=== PATIENT | male | born 1965 ===

== ENCOUNTER 2018-02-05 07:58 | Inpatient (IN) | payer MEDICAID, OTHER ==
--- NOTE | 2018-02-05 08:05 | ED PDOC ---
Arrival/HPI - General Time Seen by Provider: 02/05/18 08:00 - Critical Care Critical Care Minutes: 30 minutes Narrative Critical Care (Text): 02/05/18 09:32 heparin bolus and drip for nstemi - History of Present Illness Narrative History of Present Illness (Text): 02/05/18 08:04 Patient is a 52 y/o M with hx of [place], with prior cath in 02/2015 showing "2 vessel CAD with stents in the proximal LAD and proximal RCA, with 60% stenosis in distal RCA, on aspirin 81mg daily, presenting with 2 day history of chest pain. He reports that the pain is "like an elephant on my chest." Reports some cough. [employer] Associate: Dr. Dukes PMD: denies Past Medical History - Tetanus Immunization Tetanus Immunization: Unknown - Past Medical History Past Medical History: No Previous - Cardiac Hx Pacemaker: No - Pulmonary Hx Respiratory Disorders: No - Neurological Hx Paralysis: No - HEENT Hx HEENT Disorder: No - Renal Hx Renal Disorder: No - Endocrine/Metabolic Hx Endocrine Disorders: No - Hematological/Oncological Hx Blood Transfusions: No - Integumentary Hx Dermatological Disorder: No - Musculoskeletal/Rheumatological Hx Musculoskeletal Disorders: No - Gastrointestinal Hx Gastrointestinal Disorders: No - Genitourinary/Gynecological Hx Genitourinary Disorders: No - Psychiatric Hx Emotional Abuse: No Hx Physical Abuse: No Hx Substance Use: No - Past Surgical History Past Surgical History: No Previous - Anesthesia Hx Anesthesia Reactions: No Hx Malignant Hyperthermia: No - Suicidal Assessment Feels Threatened In Home Enviroment: No Family/Social History Family/Social History: No Known Family HX Smoking Status: Never Smoked Hx Alcohol Use: Yes (OCCASIONAL) Hx Substance Use: No Hx Substance Use Treatment: No Allergies/Home Meds Allergies/Adverse Reactions: Allergies No Known Allergies Allergy (Verified 12/16/14 06:38) Review of Systems - Review of Systems Constitutional: absent: Fatigue, Weight Change ENT: absent: Hearing Changes Respiratory: Cough. absent: SOB, Sputum, Wheezing Cardiovascular: Chest Pain. absent: Palpitations, Edema, Calf Pain, [place], Orthopnea, Syncope Gastrointestinal: absent: Constipation, Nausea, Vomiting, Hematemesis Genitourinary Male: absent: Dysuria Neurological: absent: Headache, Dizziness, Focal Weakness, Gait Changes, Speech Changes, Facial Droop, Disequilibrium Physical Exam Vital Signs Temp Pulse Resp BP Pulse Ox 02/05/18 11:47 98 F 93 H 20 122/88 97 02/05/18 09:25 97 H 18 117/86 99 02/05/18 07:58 98.6 F 104 H 18 123/88 99 Temperature: Afebrile Blood Pressure: Normal Pulse: Regular Respiratory Rate: Normal Appearance: Positive for: Well-Appearing, Non-Toxic, Comfortable Pain Distress: None Mental Status: Positive for: Alert and Oriented X 3 - Systems Exam Head: Present: Atraumatic, Normocephalic Pupils: Present: PERRL Extroacular Muscles: Present: EOMI Conjunctiva: Present: Normal Mouth: Present: Moist Mucous Membranes Neck: Present: Normal Range of Motion Respiratory/Chest: Present: Clear to Auscultation, Good Air Exchange. No: Respiratory Distress, Accessory Muscle Use Cardiovascular: Present: Regular Rate and Rhythm, Normal S1, S2. No: Murmurs Abdomen: No: Tenderness, Distention Upper Extremity: Present: Normal Inspection, Other (equal upper extremity pulses b/l) Lower Extremity: Present: Normal Inspection Neurological: Present: GCS=15, CN II-XII Intact, Speech Normal Skin: Present: Warm, Dry. No: Rashes Psychiatric: Present: Alert, Oriented x 3 Medical Decision Making ED Course and Treatment: 02/05/18 08:11 Impression: 52 year old male presents to the emergency department complaining of chest pain and coughing for 2 days. Plan: -- Labs -- Magnesium -- Chest X-ray -- Aspirin -- Urinalysis -- Reassess and disposition Progress Notes: EKG shows T wave inversions in V2-V5 02/05/18 09:23 Chest X-ray reviewed, shows: LUNGS: No active pulmonary disease. PLEURA: No significant pleural effusion identified, no pneumothorax apparent. CARDIOVASCULAR: Normal. OSSEOUS STRUCTURES: No significant abnormalities. VISUALIZED UPPER ABDOMEN: Normal. OTHER FINDINGS: None. IMPRESSION: No active disease. 02/05/18 09:32 Patient now pain free after aspirin 02/05/18 09:35 Trop elevated. Heparin bolus ordered. Repeat EKG, shows no change. 02/05/18 10:[address] Dukes who will perform cath today. Requesting plavix and NPO 02/05/18 13:39 - Lab Interpretations Lab Results: 02/05/18 08:09 02/05/18 08:09 Lab Results 02/05/18 08:09: Sodium 141, Potassium 4.4, Chloride 109 H, Carbon Dioxide 20 L, Anion Gap 17, BUN 14, Creatinine 0.9, Est GFR ( Amer) > 60, Est GFR (Non- Af Amer) > 60, Random Glucose 113 H, Calcium 8.8, Magnesium 2.0, Total Bilirubin 1.6 H, AST 61 H, ALT 57 H, Alkaline Phosphatase 69, Lactate Dehydrogenase 544, Total Creatine Kinase 309 H, CK-MB (CK-2) 31.3 H, CK-MB (CK-2 ) % 10.1 H, Troponin I 4.70 H* D, NT-Pro-B Natriuret Pep 2730 H, Total Protein 7.0, Albumin 3.9, Globulin 3.1, Albumin/Globulin Ratio 1.3 02/05/18 08:09: PT 13.4 H, INR 1.16 H, APTT 24.8 L, D-Dimer, Quantitative 1626 H 02/05/18 08:09: WBC 7.4, RBC 4.86, Hgb 14.1, Hct 41.3 L, MCV 85.0, MCH 29.0, MCHC 34.1, RDW 15.4 H, Plt Count 211, MPV 9.9, Gran % 61.1, Lymph % (Auto) 29.5 , [place] % (Auto) 8.8 H, Eos % (Auto) 0.5 L, Baso % (Auto) 0.1, Gran # 4.53, Lymph # (Auto) 2.2, [place] # (Auto) 0.7 H, Eos # (Auto) 0.0, Baso # (Auto) 0.01 02/05/18 08:00: Triglycerides 107, Cholesterol 178, LDL Cholesterol Direct 115, HDL Cholesterol 42 02/05/18 08:00: Free T4 1.20, TSH 3rd Generation 3.18, Alcohol, Quantitative < 10 - RAD Interpretation Radiology Orders: 02/05/18 08:09 CHEST PORTABLE [RAD] Stat - Medication Orders Current Medication Orders: Clopidogrel Bisulfate (Plavix) 75 mg PO DAILY [facility] Pantoprazole Sodium (Protonix Ec Tab) 40 mg PO 0600 HARDIK Discontinued Medications Aspirin (Aspirin Chewable) 81 mg PO STAT STA Stop: 02/05/18 08:10 Last Admin: 02/05/18 08:40 Dose: 81 mg Aspirin (Aspirin Chewable) 81 mg PO STAT STA Stop: 02/05/18 13:36 Clopidogrel Bisulfate (Plavix) 600 mg PO STAT STA Stop: 02/05/18 09:59 Last Admin: 02/05/18 10:09 Dose: 600 mg Heparin Sodium (Porcine) (Heparin) 4,000 units IV ONCE ONE PRN Reason: Protocol Stop: 02/05/18 09:27 Last Admin: 02/05/18 09:48 Dose: 4,000 units eMAR Start Stop Document 02/05/18 09:48 SRE (Rec: 02/05/18 09:49 SRE [id number]) Intravenous Solution Start Date 02/05/18 Start Time 09:49 Heparin Sodium/Sodium Chloride (Heparin 62643 Units/250ml 1/2 Normal Saline) 25 ,000 units in 250 mls @ 10.07 mls/hr IV .Q24H HARDIK; 12 UNITS/KG/HR PRN Reason: Protocol Last Admin: 02/05/18 10:05 Dose: - Scribe Statement The provider has reviewed the documentation as recorded by the Scribe Tabatha Bran All medical record entries made by the Herminia were at my direction and personally dictated by me. I have reviewed the chart and agree that the record accurately reflects my personal performance of the history, physical exam, medical decision making, and the department course for this patient. I have also personally directed, reviewed, and agree with the discharge instructions and disposition. Disposition/Present on Arrival - Present on Arrival Any Indicators Present on Arrival: No History of DVT/PE: No History of Uncontrolled Diabetes: No Urinary Catheter: No History Surgical Site Infection Following: None - Disposition Have Diagnosis and Disposition been Completed?: Yes Diagnosis: NSTEMI (non-ST elevated myocardial infarction), Chest pain Disposition: HOSPITALIZED Disposition Time: 07:58 Patient Plan: Admission Patient Problems: Current Active Problems Problem Status Onset Chest pain Acute NSTEMI (non-ST elevated myocardial infarction) Acute Condition: FAIR
[2018-02-05 08:30] LABS: BASO # 0.01 K/mm3 (0.0-2.0); BASO % 0.1 % (0.0-3.0); EOS % 0.5 % (1.5-5.0); GRAN # 4.53 (1.4-6.5); GRAN % 61.1 % (50.0-68.0); HEMOGLOBIN 14.1 g/dL (14.0-18.0); LYMPH # 2.2 (1.2-3.4); LYMPH % 29.5 % (22.0-35.0); MEAN CORPUSCULAR HGB CONC 34.1 g/dl (31.0-37.0); MEAN PLATELET VOLUME 9.9 fl (7.0-11.0); MONO # 0.7 (0.1-0.6); MONO % 8.8 % (1.0-6.0); RBC 4.86 10^6/uL (3.5-6.1); RED CELL DISTRIBUTION WIDTH 15.4 % (11.5-14.5); WHITE BLOOD COUNT 7.4 10^3/ul (4.5-11.0)
[2018-02-05 08:39] LABS: ALB/GLOB RATIO 1.3 (1.1-1.8); ALBUMIN 3.9 g/dL (3.0-4.8); ALT/SGPT 57 U/L (7-56); AST/SGOT 61 U/L (17-59); BLOOD UREA NITROGEN 14 mg/dL (7-21); CALCIUM 8.8 mg/dL (8.4-10.5); GFR AFRICAN-AMERICAN > 60; GFR NON-AFRICAN AMERICAN > 60
[2018-02-05 08:51] LABS: INR 1.16 (0.93-1.08); PARTIAL THROMBOPLASTIN TIME 24.8 Seconds (25.1-36.5); PROTHROMBIN TIME 13.4 SECONDS (9.4-12.5)
[2018-02-05 08:53] LABS: B-TYPE NATRIURETIC PEPTIDE 2730 pg/mL (0-450)
[2018-02-05 08:58] LABS: CK MB% 10.1 % (2.5-3.0); CK-MB 31.3 ng/mL (0.0-3.6)
--- NOTE | 2018-02-05 09:21 | RAD ---
HISTORY: cough, chest pain COMPARISON: 12/17/2014 FINDINGS: LUNGS: No active pulmonary disease. PLEURA: No significant pleural effusion identified, no pneumothorax apparent. CARDIOVASCULAR: Normal. OSSEOUS STRUCTURES: No significant abnormalities. VISUALIZED UPPER ABDOMEN: Normal. OTHER FINDINGS: None. IMPRESSION: No active disease.
[2018-02-05] MEDS: Heparin25000 units/250ml 1/2NS 25,000 UNITS/250 ML BAG IV SCH ×2 (09:46→10:05)
--- NOTE | 2018-02-05 11:31 | CP.PCM.HP ---
<Lila Acevedo - Last Filed: 02/05/18 12:12> History of Present Illness - History of Present Illness History of Present Illness: PGY-[address] Lopez Mr Frey, 52 slovak speaking male with PMHx 3-4 beer a day, Hx CAD s/p 2 stents ( RCA dominant, LAD stent/RCA stent, EF 35-40% 2014) came in for chest pain. Yesterday 3pm, He was working at [employer], which involves a lot of throwing boxes overhead. He felt chest pressure with mild pain at L mid chest , without radiation pain, denies dizziness, diaphoresis, n/v. He took asa 81, which helped. However the chest pain comes and goes. At night he didn't sleep well because of the chest pain. He decided to come to this hospital because chest pain didn't go away. ROS: (+) cough with white sputum, x 3 weeks, subjective chills (+) chest pain. Denies SOB, N/V/D/C, dysuria PMD: No Outpt card: Dr Dukes PMHx: CAD s/p stents x 2 6.2015: L heart cath, EF 35-40%. LAD stent proximal, RCA stent proximal 3-4 beer a day PSH: Denies FH: Mom - bone cancer, dad- of [place] at 78 yo SH: Denies smoking, (+) 3-4 beer/day. Denies drug. live alone. independent ambulate All: NKDA Med: asa 81 Present on Admission - Present on Admission Any Indicators Present on Admission: No Past Patient History - Infectious Disease Hx of Infectious Diseases: None - Tetanus Immunizations Tetanus Immunization: Unknown - Past Social History Smoking Status: Never Smoked - CARDIAC Hx Pacemaker: No - PULMONARY Hx Respiratory Disorders: No - NEUROLOGICAL Hx Paralysis: No - HEENT Hx HEENT Problems: No - RENAL Hx Chronic Kidney Disease: No - ENDOCRINE/METABOLIC Hx Endocrine Disorders: No - HEMATOLOGICAL/ONCOLOGICAL Hx Blood Transfusions: No - INTEGUMENTARY Hx Dermatological Problems: No - MUSCULOSKELETAL/RHEUMATOLOGICAL Hx Musculoskeletal Disorders: No - GASTROINTESTINAL Hx Gastrointestinal Disorders: No - GENITOURINARY/GYNECOLOGICAL Hx Genitourinary Disorders: No - PSYCHIATRIC Hx Emotional Abuse: No Hx Physical Abuse: No Hx Substance Use: No - SURGICAL HISTORY Hx Surgeries: Yes - ANESTHESIA Hx Anesthesia Reactions: No Hx Malignant Hyperthermia: No Meds Allergies/Adverse Reactions: Allergies Allergy/AdvReac Type Severity Reaction Status Date / Time No Known Allergies Allergy Verified 12/16/14 06:38 Results - Vital Signs Recent Vital Signs: Last Vital Signs Temp 98.6 F 02/05/18 07:58 Pulse 97 H 02/05/18 09:25 Resp 18 02/05/18 09:25 BP 117/86 02/05/18 09:25 Pulse Ox 99 02/05/18 09:25 - Labs Result Diagrams: 02/05/18 08:09 02/05/18 08:09 Assessment & Plan - Assessment and Plan (Free Text) Plan: Mr Frey, 52 slovak speaking male with PMHx, 3-4 beer a day, Hx CAD s/p 2 stents (RCA dominant, LAD stent/RCA stent, EF 35-40% 2014) came in for chest pain. Yesterday 3pm, He was working at [employer], which involves a lot of throwing boxes overhead. He felt chest pressure with mild pain at L mid chest , without radiation pain, denies dizziness, diaphoresis, n/v. He was found to have NSTEMI. His EKG showed TWI on lateral leads, troponin 4.70. BNP 2730. CXR no active disease. NSTEMI, lateral - EKG: TWI lateral leads. - Pending cardiac cath at noon - A1C, TSH, free t4, lipid panel - Loading dose plavix before cath. - starting plavix per cardio Elevated BNP, likely ischemic cardiomyopathy, systolic CHF? 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 AST 61. ALT 57. INR 1.16. No abdominal pain - MELD-Na 10 points (<2% of 3 month mortality) - Maddrey's discriminant function 8.0 - Pending hep panel - continue trend LFT Hx daily 3-4 beer - pending BETHANY - CIWA q4 - hold ativan pending BETHANY Prophylasix - protonix - Got IV heparin before cath. May start tomorrow NPO for now s/r/d/w Dr. Lopez <Franki Lopez - Last Filed: 02/06/18 07:37> Results - Vital Signs Recent Vital Signs: Last Vital Signs Temp 98 F 02/05/18 21:35 Pulse 96 H 02/06/18 02:00 Resp 62 H 02/05/18 20:40 BP 112/82 02/05/18 20:40 Pulse Ox 99 02/05/18 20:40 - Labs Result Diagrams: 02/06/18 06:00 02/06/18 06:00 Labs: Laboratory Results - last 24 hr 02/05/18 02/06/18 02/06/18 11:05 03:00 03:00 WBC RBC Hgb Hct MCV MCH MCHC RDW Plt Count MPV Gran % Lymph % (Auto) [place] % (Auto) Eos % (Auto) Baso % (Auto) Gran # Lymph # (Auto) [place] # (Auto) Eos # (Auto) Baso # (Auto) Sodium Potassium Chloride Carbon Dioxide Anion Gap BUN Creatinine Est GFR ( Amer) Est GFR (Non-Af Amer) Random Glucose Calcium Total Bilirubin AST ALT Alkaline Phosphatase Lactate Dehydrogenase Total Creatine Kinase Troponin I Total Protein Albumin Globulin Albumin/Globulin Ratio Urine Color Yellow Urine Appearance Clear Urine pH 6.0 Ur Specific [place] 1.015 Urine Protein Negative Urine Glucose (UA) Negative Urine Ketones Negative Urine Blood Negative Urine Nitrate Negative Urine Bilirubin Negative Urine Urobilinogen 0.2 Ur Leukocyte Esterase Negative Urine Opiates Screen Negative Urine Methadone Screen Negative Ur Barbiturates Screen Negative Ur Phencyclidine Scrn Negative Ur Amphetamines Screen Negative U Benzodiazepines Scrn Positive U Oth Cocaine Metabols Negative U Cannabinoids Screen Negative Blood Type A POSITIVE Antibody Screen Negative BBK History Checked Patient has bt 02/06/18 02/06/18 06:00 06:00 WBC 7.6 RBC 4.74 Hgb 13.5 L Hct 40.9 L MCV 86.3 MCH 28.5 MCHC 33.0 RDW 15.4 H Plt Count 203 MPV 10.1 Gran % 64.8 Lymph % (Auto) 23.3 [place] % (Auto) 11.5 H Eos % (Auto) 0.3 L Baso % (Auto) 0.1 Gran # 4.89 Lymph # (Auto) 1.8 [place] # (Auto) 0.9 H Eos # (Auto) 0.0 Baso # (Auto) 0.01 Sodium 141 Potassium 4.7 Chloride 105 Carbon Dioxide 25 Anion Gap 16 BUN 14 Creatinine 1.0 Est GFR ( Amer) > 60 Est GFR (Non-Af Amer) > 60 Random Glucose 101 Calcium 8.6 Total Bilirubin 1.8 H AST 60 H ALT 53 Alkaline Phosphatase 67 Lactate Dehydrogenase 596 Total Creatine Kinase 234 H Troponin I 3.83 H* Total Protein 6.8 Albumin 3.6 Globulin 3.2 Albumin/Globulin Ratio 1.1 Urine Color Urine Appearance Urine pH Ur Specific [place] Urine Protein Urine Glucose (UA) Urine Ketones Urine Blood Urine Nitrate Urine Bilirubin Urine Urobilinogen Ur Leukocyte Esterase Urine Opiates Screen Urine Methadone Screen Ur Barbiturates Screen Ur Phencyclidine Scrn Ur Amphetamines Screen U Benzodiazepines Scrn U Oth Cocaine Metabols U Cannabinoids Screen Blood Type Antibody Screen BBK History Checked Attending/Attestation - Attestation I have personally seen and examined this patient.: Yes I have fully participated in the care of the patient.: Yes I have reviewed all pertinent clinical information: Yes Notes (Text): 02/06/18 07:35 Attending note; Patient seen and examined with resident in ER. Patient is a 52 year old Cymra[place] speaking male with PMH of alcohol use, Hx CAD s /p 2 stents (RCA dominant, LAD stent/RCA stent, EF 35-40% 2014) came in for chest pain. Found to have non-ST elevation [place]. Patient was given aspirin, Plavix and IV heparin in the ER. Patient will be transferred to cardiac cath today. Case discussed with cardiology in detail by ER attending. Will follow up closely after cardiac cath. History of alcohol use; complete alcohol cessation is strongly advised. Started on CIWA protocol. Upon discharge patient will be referred to [facility] clinic. 02/06/18 07:37
[2018-02-05 11:44] LABS: HDL CHOLESTEROL 42 mg/dL (29-60)
[2018-02-05 11:55] LABS: LDL CHOLESTEROL 115 mg/dL (0-129)
[2018-02-05] MEDS ORDERED: Lidocaine 2% Inj (20ml) ONE (12:07)
[2018-02-05] MEDS ORDERED: Phenylephrine 10 mg/ml Inj ONE (12:07)
[2018-02-05] MEDS ORDERED: Nitroglycerin 50mg in D5W 50 MG/250 ML BOTTLE IV ONE (12:08)
[2018-02-05] MEDS ORDERED: Iodixanol 320 MG/ML 200 ML BOTTLE IV ONE (12:08)
[2018-02-05] MEDS ORDERED: Iohexol 350mgl/ml 50 ML ONE (12:08)
[2018-02-05] MEDS ORDERED: Iodixanol 320 MG/ML 100 ML BOTTLE IV ONE (12:08)
[2018-02-05] MEDS ORDERED: Midazolam 2 MG/2 ML VIAL ONE ×2 (12:10→12:24)
[2018-02-05] MEDS ORDERED: Eptifibatide 20 mg/10mL Inj IVP ONE (12:31)
[2018-02-05] MEDS ORDERED: Eptifibatide 0.75 mg/ml 75 MG/100 ML BOTTLE IV ONE (12:32)
--- NOTE | 2018-02-05 14:21 | CP.PCM.CON ---
<Jose Malhotra - Last Filed: 02/05/18 15:13> History of Present Illness - History of Present Illness History of Present Illness: ICU Consult Note CC: Post cardiac catherization Pt is a 52 yo M with PMH of CAD s/p 2 stents (RCA dominant, LAD stent/RCA stent , EF 35-40% 2014) presented to [facility] due to intermittent chest pain that started yesterday while at work, where he does a lot lifting. Patient states that the chest pain was localized to the left side of his chest, but did not radiate. Patient admitted to shortness of breath. Patient denied any associated nausea, vomiting, or palpitations. Patient states that the pain was similar to NSTEMI he had in 2015, which required stents. As the pain persisted today, patient proceeded to the ED to seek evaluation. In the ED, patient had an elevated troponin of 4.70 and t-wave inversions in the lateral leads. Patient was evaluated by cardiology, who took the patient to cardiac catherization lab. DINA were placed in the LAD and circumflex arteries. ICU consultation was requested for post-cardiac catherization monitoring on integrilin drip. PMH: CAD s/p 2 stents (RCA dominant, LAD stent/RCA stent, EF 35-40% 2014) Surg: Cardiac catherization (2014) All: NKDA SH: Admits to 3-4 beers daily; Denies tobacco and illicit drug use FHx: CAD Review of Systems - Review of Systems Review of Systems: 12 point ROS reviewed and is negative other than what is stated in HPI. Past Patient History - Infectious Disease Hx of Infectious Diseases: None - Tetanus Immunizations Tetanus Immunization: Unknown - Past Social History Smoking Status: Never Smoked - CARDIAC Hx Pacemaker: No - PULMONARY Hx Respiratory Disorders: No - NEUROLOGICAL Hx Paralysis: No - HEENT Hx HEENT Problems: No - RENAL Hx Chronic Kidney Disease: No - ENDOCRINE/METABOLIC Hx Endocrine Disorders: No - HEMATOLOGICAL/ONCOLOGICAL Hx Blood Transfusions: No - INTEGUMENTARY Hx Dermatological Problems: No - MUSCULOSKELETAL/RHEUMATOLOGICAL Hx Musculoskeletal Disorders: No - GASTROINTESTINAL Hx Gastrointestinal Disorders: No - GENITOURINARY/GYNECOLOGICAL Hx Genitourinary Disorders: No - PSYCHIATRIC Hx Emotional Abuse: No Hx Physical Abuse: No Hx Substance Use: No - SURGICAL HISTORY Hx Surgeries: Yes - ANESTHESIA Hx Anesthesia Reactions: No Hx Malignant Hyperthermia: No Meds Allergies/Adverse Reactions: Allergies Allergy/AdvReac Type Severity Reaction Status Date / Time No Known Allergies Allergy Verified 12/16/14 06:38 - Medications Medications: Current Medications Clopidogrel Bisulfate (Plavix) 75 mg PO DAILY [facility] Pantoprazole Sodium (Protonix Ec Tab) 40 mg PO 0600 [facility] Physical Exam - Constitutional Appears: No Acute Distress - Head Exam Head Exam: NORMAL INSPECTION - Eye Exam Eye Exam: EOMI, Normal appearance, PERRL - ENT Exam ENT Exam: Mucous Membranes Moist - Neck Exam Neck exam: Positive for: Normal Inspection - Respiratory Exam Respiratory Exam: Clear to Auscultation Bilateral. absent: Rales, Rhonchi, Wheezes - Cardiovascular Exam Cardiovascular Exam: RRR, +S1, +S2. absent: Diastolic murmur, Gallop, Rubs, Systolic Murmur - GI/Abdominal Exam GI & Abdominal Exam: Soft. absent: Distended, Guarding, Rigid, Tenderness - Extremities Exam Additional comments: Cardiac catherization site right femoral: nontender to palpation, no signs of hematoma or discharge, bandage is clean, dry, and intact. - Back Exam Back exam: NORMAL INSPECTION - Neurological Exam Neurological exam: Alert, CN II-XII Intact, Oriented x3 - Psychiatric Exam Psychiatric exam: Normal Affect, Normal Mood - Skin Skin Exam: Dry, Intact, Normal Color, Warm Results - Vital Signs Recent Vital Signs: Last Vital Signs Temp 97.4 F L 02/05/18 13:44 Pulse 95 H 02/05/18 13:44 Resp 20 02/05/18 13:44 BP 112/78 02/05/18 13:44 Pulse Ox 97 02/05/18 13:44 - Labs Result Diagrams: 02/05/18 08:09 02/05/18 08:09 Labs: Laboratory Results - last 24 hr 02/05/18 11:05 Blood Type A POSITIVE Antibody Screen Negative BBK History Checked Patient has bt Assessment & Plan - Assessment and Plan (Free Text) Assessment: 52 yo M with PMH of CAD presented to [facility] due to chest pain. Patient was found to have T-wave inversions in lateral leads and an elevated troponin. Patient was taken to cardiac catherization lab for NSTEMI, where DINA were placed in LAD and circumflex arteries. Patient is admitted to ICU for post-cardiac catherization monitoring on integrilin drip. Plan: Neuro: - AAOx3 - Maintain normothermia CV: - Cont integrilin drip - Dual anti-platelet therapy - Post cardiac cath protocol - Consider statin after LFT's normalize - Hold BB for now per cardio - TSH and Lipid panel WNL - A1C ordered - Maintain MAP > 65 - Cardiology consulted Pulm: - CXR negative - Maintain O2 > 90% - O2 via NC GI: - Mildly elevated LFT's, acute hep panel ordered - Protonix for GI PPx - Heart healthy diet Renal: - Monitor electrolytes and replete as needed - Maintain euvolemia Heme: - Monitor H/H - Heparin given before medical lab tech instructor Endo: - Maintain euglycemia Pt seen and discussed in detail with Dr. Moise. Vinod Malhotra, PGY1 <Harvinder Moise - Last Filed: 02/06/18 11:20> Meds - Medications Medications: Current Medications Aspirin (Ecotrin) 81 mg PO DAILY [facility] Last Admin: 02/06/18 10:11 Dose: 81 mg Clopidogrel Bisulfate (Plavix) 75 mg PO DAILY [facility] Last Admin: 02/06/18 10:11 Dose: 75 mg Lisinopril (Zestril) 2.5 mg PO DAILY [facility] Last Admin: 02/06/18 10:11 Dose: 2.5 mg Lorazepam (Ativan) 1 mg IVP Q4H PRN; Protocol PRN Reason: Symptoms of alcohol withdrawl Pantoprazole Sodium (Protonix Ec Tab) 40 mg PO 0600 [facility] Last Admin: 02/06/18 06:43 Dose: 40 mg Results - Vital Signs Recent Vital Signs: Last Vital Signs Temp 98 F 02/05/18 21:35 Pulse 93 H 02/06/18 10:49 Resp 45 H 02/06/18 10:48 BP 127/86 02/06/18 10:40 Pulse Ox 90 L 02/06/18 10:40 - Labs Result Diagrams: 02/06/18 06:00 02/06/18 06:00 Labs: Laboratory Results - last 24 hr 02/05/18 02/06/18 02/06/18 11:05 03:00 03:00 WBC RBC Hgb Hct MCV MCH MCHC RDW Plt Count MPV Gran % Lymph % (Auto) Porter % (Auto) Eos % (Auto) Baso % (Auto) Gran # Lymph # (Auto) Porter # (Auto) Eos # (Auto) Baso # (Auto) Sodium Potassium Chloride Carbon Dioxide Anion Gap BUN Creatinine Est GFR ( Amer) Est GFR (Non-Af Amer) Random Glucose Calcium Total Bilirubin AST ALT Alkaline Phosphatase Lactate Dehydrogenase Total Creatine Kinase CK-MB (CK-2) CK-MB (CK-2) % Troponin I Total Protein Albumin Globulin Albumin/Globulin Ratio Urine Color Yellow Urine Appearance Clear Urine pH 6.0 Ur Specific [place] 1.015 Urine Protein Negative Urine Glucose (UA) Negative Urine Ketones Negative Urine Blood Negative Urine Nitrate Negative Urine Bilirubin Negative Urine Urobilinogen 0.2 Ur Leukocyte Esterase Negative Urine Opiates Screen Negative Urine Methadone Screen Negative Ur Barbiturates Screen Negative Ur Phencyclidine Scrn Negative Ur Amphetamines Screen Negative U Benzodiazepines Scrn Positive U Oth Cocaine Metabols Negative U Cannabinoids Screen Negative Blood Type A POSITIVE Antibody Screen Negative BBK History Checked Patient has bt 02/06/18 02/06/18 06:00 06:00 WBC 7.6 RBC 4.74 Hgb 13.5 L Hct 40.9 L MCV 86.3 MCH 28.5 MCHC 33.0 RDW 15.4 H Plt Count 203 MPV 10.1 Gran % 64.8 Lymph % (Auto) 23.3 Porter % (Auto) 11.5 H Eos % (Auto) 0.3 L Baso % (Auto) 0.1 Gran # 4.89 Lymph # (Auto) 1.8 Porter # (Auto) 0.9 H Eos # (Auto) 0.0 Baso # (Auto) 0.01 Sodium 141 Potassium 4.7 Chloride 105 Carbon Dioxide 25 Anion Gap 16 BUN 14 Creatinine 1.0 Est GFR ( Amer) > 60 Est GFR (Non-Af Amer) > 60 Random Glucose 101 Calcium 8.6 Total Bilirubin 1.8 H AST 60 H ALT 53 Alkaline Phosphatase 67 Lactate Dehydrogenase 596 Total Creatine Kinase 234 H CK-MB (CK-2) 17.4 H CK-MB (CK-2) % 7.4 H Troponin I 3.83 H* Total Protein 6.8 Albumin 3.6 Globulin 3.2 Albumin/Globulin Ratio 1.1 Urine Color Urine Appearance Urine pH Ur Specific [place] Urine Protein Urine Glucose (UA) Urine Ketones Urine Blood Urine Nitrate Urine Bilirubin Urine Urobilinogen Ur Leukocyte Esterase Urine Opiates Screen Urine Methadone Screen Ur Barbiturates Screen Ur Phencyclidine Scrn Ur Amphetamines Screen U Benzodiazepines Scrn U Oth Cocaine Metabols U Cannabinoids Screen Blood Type Antibody Screen BBK History Checked Attending/Attestation - Attestation I have personally seen and examined this patient.: Yes I have fully participated in the care of the patient.: Yes I have reviewed all pertinent clinical information: Yes Notes (Text): 02/06/18 11:19 52 male with ACS, now s/p 2 stents on integrillin drip. continue DAP, bb, statins. TAC at the discretion of cardio service. ccm time 40 min
--- NOTE | 2018-02-05 14:24 | CARD ---
APPROVED REPORT EKG Measurement Heart [id number] MA [id number] <Conclusion> Normal sinus rhythm Possible Left atrial enlargement Left axis deviation Anterior infarct, age undetermined T wave abnormality, consider markus- lateral ischemia Abnormal ECG
--- NOTE | 2018-02-05 16:08 | CARDCATH ---
PROCEDURE DATE: 02/05/2018 EMERGENCY CARDIAC CATH AND PTCA HISTORY: The patient is a 52-year-old male with a previous anterior wall myocardial infarction in the past who presents with substernal chest pain and shortness of breath and found to have elevated troponins in the emergency room. The patient suffers from diabetes mellitus, hypertension, hypercholesterolemia and obesity and has not been followed up with medical care nor has been undergoing a cardiac risk reduction program. Because of his acute coronary syndrome, the patient was brought up to the catheter builder on an emergency basis. PROCEDURE: Left heart catheterization with coronary arteriography and left ventriculogram followed by PTCA and stent of an LAD, and PTCA and stent of the circumflex artery. The right femoral artery was cannulated with a 6-Micronesian sheath. There were no complications. I performed moderate sedation which included the presence of an independent trained observer that assisted in monitoring the patient's level of consciousness and physiologic status. After administration of Versed and fentanyl, my intra-service time was 30 minutes. The patient was started on intravenous Integrilin with two boluses and a drip. The ACT from the emergency room was 145, an additional 4000 units of heparin was given. The findings on catheterization revealed a right dominant circulation. The RCA revealed diffuse atherosclerosis throughout its course with a 90% stenosis at the takeoff of the PDA. The left main artery was unremarkable. The LAD was occluded in its proximal portion prior to the previously placed stent with evidence of thrombus. The circumflex artery revealed a 70% stenosis in the midportion of a large AV groove branch vessel. The obtuse marginal branch revealed an 80% ostial stenosis with a 70% proximal stenosis. Left ventricular function was measured in the BURCH projection. The anterior wall was noted to be hypokinetic. Estimated ejection fraction is 25%-30%. exchanged for a guiding catheter which was placed in the ostium of the left main artery. An 0.014 ATW wire was used to cross the total occlusion. A 2 followed by a 2.5 balloon was utilized to pre-dilate the lesion. A 3.5 x 12 mm drug-eluting stent was placed and deployed in the proximal LAD. After balloon deflation and removal, repeat coronary arteriography revealed an excellent result with no residual stenosis and KOBE III flow. The wire was then brought back and placed into the circumflex artery. A 3.5 x 15 mm drug-eluting stent was placed and deployed. Repeat coronary arteriography revealed an excellent result with no residual stenosis and KOBE III flow. Angio-Seal was used to close the femoral artery site. The patient tolerated the procedure well. In summary, the procedure was an emergency PTCA and stent of an occluded LAD and followed by PTCA and stent of a circumflex artery with drug-eluting stents. Cardiac catheterization reveals triple vessel CAD with a compromised left ventricle. Given these findings, the patient will need to remain on aspirin indefinitely and Plavix for at least a year. We will discuss with the patient electively as an outpatient about his need for cardiac risk reduction program and about a possible planned PTCA of the RCA. Jose J Dukes MD
[2018-02-05 17:29] VITALS: BMI 29.5
[2018-02-05 20:56] VITALS: TEMP 98
[2018-02-05 21:10] LABS: HEPATITIS B SURFACE AG Negative (NEGATIVE)
[2018-02-05] MEDS ORDERED: Eptifibatide 0.75 mg/ml 75 MG/100 ML BOTTLE IV SCH (21:15)
[2018-02-05 21:16] LABS: HEPATITIS A IGM NEGATIVE (NEGATIVE); HEPATITIS B CORE AB NEGATIVE (NEGATIVE)
[2018-02-05 21:26] LABS: HEPATITIS C ANTIBODY NEGATIVE (NEGATIVE)
--- NOTE | 2018-02-05 21:36 | CARD ---
APPROVED REPORT EKG Measurement Heart [id number] MO 136P69 [id number] <Conclusion> Normal sinus rhythm Left axis deviation T wave abnormality, consider anterolateral ischemia Prolonged QT Abnormal ECG
--- NOTE | 2018-02-05 23:15 | CARD ---
APPROVED REPORT EKG Measurement Heart [id number] [place] 130P74 [id number] <Conclusion> Sinus tachycardia Possible Left atrial enlargement Left axis deviation Cannot rule out Anteroseptal infarct, age undetermined T wave abnormality, consider lateral ischemia Abnormal ECG
[2018-02-06 03:27] LABS: URINE BILIRUBIN NEGATIVE (NEGATIVE); URINE BLOOD NEGATIVE (NEGATIVE); URINE GLUCOSE (UA) NEGATIVE (NEGATIVE); URINE LEUKOCYTE ESTERASE NEGATIVE Leu/uL (NEGATIVE); URINE PROTEIN NEGATIVE mg/dL (<30 mg/dL); URINE UROBILINOGEN 0.2 E.U./dL (<1 E.U./dL)
[2018-02-06 03:28] LABS: URINE APPEARANCE CLEAR (CLEAR); URINE COLOR YELLOW (YELLOW)
[2018-02-06 04:03] LABS: BARBITURATES, UR NEGATIVE (NEGATIVE); BENZODIAZEPINES, UR POSITIVE (NEGATIVE); OPIATES, UR NEGATIVE (NEGATIVE); PHENCYCLIDINE, UR NEGATIVE (NEGATIVE)
[2018-02-06] MEDS ORDERED: Pantoprazole 40 mg EC Tab PO SCH (06:00)
[2018-02-06 07:08] LABS: BASO # 0.01 K/mm3 (0.0-2.0); BASO % 0.1 % (0.0-3.0); EOS % 0.3 % (1.5-5.0); GRAN # 4.89 (1.4-6.5); GRAN % 64.8 % (50.0-68.0); HEMOGLOBIN 13.5 g/dL (14.0-18.0); LYMPH # 1.8 (1.2-3.4); LYMPH % 23.3 % (22.0-35.0); MEAN CELL VOLUME 86.3 fl (80.0-105.0); MEAN CORPUSCULAR HEMOGLOBIN 28.5 pg (25.0-35.0); MEAN PLATELET VOLUME 10.1 fl (7.0-11.0); MONO # 0.9 (0.1-0.6); MONO % 11.5 % (1.0-6.0); RBC 4.74 10^6/uL (3.5-6.1); RED CELL DISTRIBUTION WIDTH 15.4 % (11.5-14.5); WHITE BLOOD COUNT 7.6 10^3/ul (4.5-11.0)
[2018-02-06 07:23] LABS: ALB/GLOB RATIO 1.1 (1.1-1.8); ALBUMIN 3.6 g/dL (3.0-4.8); ALT/SGPT 53 U/L (7-56); AST/SGOT 60 U/L (17-59); BLOOD UREA NITROGEN 14 mg/dL (7-21); CALCIUM 8.6 mg/dL (8.4-10.5); GFR AFRICAN-AMERICAN > 60; GFR NON-AFRICAN AMERICAN > 60
[2018-02-06 07:28] LABS: TROPONIN I 3.83 ng/mL
[2018-02-06 07:40] LABS: CK MB% 7.4 % (2.5-3.0); CK-MB 17.4 ng/mL (0.0-3.6)
--- NOTE | 2018-02-06 07:59 | CP.PCM.PN ---
Subjective - Date & Time of Evaluation Date of Evaluation: 02/06/18 Time of Evaluation: 07:51 - Subjective Subjective: PGY-[address] Lopez Pt seen and examined in ICU. complained of mild pain at R, reproducible on palpation. Chest pressure on L resolved. No other acute complaints Objective - Vital Signs/Intake and Output Vital Signs (last 24 hours): Temp Pulse Resp BP Pulse Ox 98 F 96 H 62 H 112/82 99 02/05/18 21:35 02/06/18 02:00 02/05/18 20:40 02/05/18 20:40 02/05/18 20:40 - Medications Medications: Current Medications Aspirin (Ecotrin) 81 mg PO DAILY [facility] Clopidogrel Bisulfate (Plavix) 75 mg PO DAILY [facility] Lorazepam (Ativan) 1 mg IVP Q4H PRN; Protocol PRN Reason: Symptoms of alcohol withdrawl Pantoprazole Sodium (Protonix Ec Tab) 40 mg PO 0600 [facility] Last Admin: 02/06/18 06:43 Dose: 40 mg - Labs Labs: 02/06/18 06:00 02/06/18 06:00 PT 13.4 SECONDS (9.4-12.5) H 02/05/18 08:09 INR 1.16 (0.93-1.08) H 02/05/18 08:09 APTT 24.8 Seconds (25.1-36.5) L 02/05/18 08:09 - Constitutional Appears: No Acute Distress - Head Exam Head Exam: ATRAUMATIC, NORMAL INSPECTION, NORMOCEPHALIC - Eye Exam Eye Exam: EOMI, Normal appearance, PERRL. absent: Scleral icterus Pupil Exam: NORMAL ACCOMODATION, PERRL - ENT Exam ENT Exam: Mucous Membranes Moist - Neck Exam Additional comments: supple. No JVD - Respiratory Exam Respiratory Exam: Clear to Ausculation Bilateral, NORMAL BREATHING PATTERN. absent: Rales, Rhonchi, Wheezes, Stridor - Cardiovascular Exam Cardiovascular Exam: REGULAR RHYTHM, +S1, +S2. absent: Murmur - GI/Abdominal Exam GI & Abdominal Exam: Soft, Normal Bowel Sounds. absent: Guarding, Rigid, Tenderness - Extremities Exam Extremities Exam: Normal Capillary Refill. absent: Calf Tenderness - Neurological Exam Neurological Exam: Alert, Awake, Oriented x3 Neuro motor strength exam: Left Upper Extremity: 5, Right Upper Extremity: 5, Left Lower Extremity: 5, Right Lower Extremity: 5 - Psychiatric Exam Psychiatric exam: Normal Mood - Skin Skin Exam: Dry, Warm Assessment and Plan - Assessment and Plan (Free Text) Plan: Mr Frey, 52 korean speaking male with PMHx of ETOH use (3-4 beer a day), Hx CAD s/p 2 stents (RCA dominant, LAD stent/RCA stent, EF 35-40% 2014) came in for chest pain. Yesterday 3pm, He was working at [employer], which involves a lot of throwing boxes overhead. He felt chest pressure with mild pain at L mid chest, without radiation pain, denies dizziness, diaphoresis, n/ v. He was found to have NSTEMI. His EKG showed TWI on lateral leads, troponin 4.70. BNP 2730. CXR no active disease. He was taken to the boat laborer for emergent PTCA, received LED on proximal LAD and L circumflex artery. He was found to have Ischemic cardiomyopathy, EF 25-30% due to triple vessel disease. Integrillin gtt stopped 7am NSTEMI, lateral: ACS Elevated D-dimer likely due to ACS - EKG on admission: TWI lateral leads. 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 AST 61. ALT 57. INR 1.16. No abdominal pain - MELD-Na 10 points (<2% of 3 month mortality) - Madrichie's discriminant function 8.0 - hep panel negative - continue trend LFT Hx daily 3-4 beer - pending BETHANY - CIWA q4: 0-2 - Ativan PRN Prophylasix - protonix - Got IV heparin before cath. May start later HHD for now s/r/d/w Dr. Lopez
--- NOTE | 2018-02-06 10:13 | CP.CCUPN ---
CCU Subjective - Physician Review Subjective (Free Text): ICU Progress Note Pt seen and examined at bedside. No acute overnight events. Patient complaining of reproducible right sided chest pain this AM. Otherwise, patient denies SOB, n /v/d, abdominal pain, fever, chills, DHILLON, or dizziness. CCU Objective - Vital Signs / Intake & Output Intake and Output (Last 8hrs): Intake & Output 02/05/18 02/06/18 02/06/18 22:59 06:59 14:59 Intake Total 807 Output Total 900 Balance -93 Weight 90.718 kg Intake: IV 457 Right 457 Oral 350 Output: Urine 900 Urine, Voided 900 Stool 0 Other: Voiding Method Toilet # Voids Urine, Voided 2 - Physical Exam Head: Positive for: Atraumatic, Normocephalic Pupils: Positive for: PERRL Extroacular Muscles: Positive for: EOMI Conjunctiva: Positive for: Normal Mouth: Positive for: Moist Mucous Membranes Neck: Positive for: Normal Range of Motion Respiratory/Chest: Positive for: Clear to Auscultation, Good Air Exchange. Negative for: Respiratory Distress, Accessory Muscle Use Cardiovascular: Positive for: Regular Rate and Rhythm, Normal S1, S2. Negative for: Murmurs, Rub, Gallop Abdomen: Negative for: Tenderness, Distention, Rebound Upper Extremity: Positive for: Normal Inspection, Other (equal upper extremity pulses b/l) Lower Extremity: Positive for: Normal Inspection, NORMAL PULSES, Other (Cath site, right groin: no signs of hematoma, discharge, bandages clean, dry, and intact) Neurological: Positive for: GCS=15, CN II-XII Intact, Speech Normal Skin: Positive for: Warm, Dry. Negative for: Rashes Psychiatric: Positive for: Alert, Oriented x 3 - Medications Active Medications: Active Medications Generic Name Dose Route Start Last Admin Trade Name Freq PRN Reason Stop Dose Admin Aspirin 81 mg 02/06/18 10:00 Ecotrin PO DAILY HARDIK Clopidogrel Bisulfate 75 mg 02/06/18 10:00 Plavix PO DAILY HARDIK Lisinopril 2.5 mg 02/06/18 10:00 Zestril PO DAILY HARDIK Lorazepam 1 mg 02/05/18 18:47 Ativan IVP Q4H PRN Symptoms of alcohol withdrawl Protocol Pantoprazole Sodium 40 mg 02/06/18 06:00 02/06/18 06:43 Protonix Ec Tab PO 40 mg 0600 HARDIK Administration - Patient Studies Lab Studies: Lab Studies 02/06/18 02/06/18 02/06/18 Range/Units 06:00 06:00 03:00 WBC 7.6 (4.5-11.0) 10^3/ul RBC 4.74 (3.5-6.1) 10^6/uL Hgb 13.5 L (14.0-18.0) g/dL Hct 40.9 L (42.0-52.0) % MCV 86.3 (80.0-105.0) fl MCH 28.5 (25.0-35.0) pg MCHC 33.0 (31.0-37.0) g/dl RDW 15.4 H (11.5-14.5) % Plt Count 203 (120.0-450.0) 10^3/uL MPV 10.1 (7.0-11.0) fl Gran % 64.8 (50.0-68.0) % Lymph % (Auto) 23.3 (22.0-35.0) % [place] % (Auto) 11.5 H (1.0-6.0) % Eos % (Auto) 0.3 L (1.5-5.0) % Baso % (Auto) 0.1 (0.0-3.0) % Gran # 4.89 (1.4-6.5) Lymph # (Auto) 1.8 (1.2-3.4) [place] # (Auto) 0.9 H (0.1-0.6) Eos # (Auto) 0.0 (0.0-0.7) Baso # (Auto) 0.01 (0.0-2.0) K/mm3 Sodium 141 (132-148) mmol/L Potassium 4.7 (3.6-5.0) mmol/L Chloride 105 (98-107) mmol/L Carbon Dioxide 25 (21-33) mmol/L Anion Gap 16 (10-20) BUN 14 (7-21) mg/dL Creatinine 1.0 (0.8-1.5) mg/dl Est GFR ( Amer) > 60 Est GFR (Non-Af Amer) > 60 Random Glucose 101 (70-110) mg/dL Calcium 8.6 (8.4-10.5) mg/dL Total Bilirubin 1.8 H (0.2-1.3) mg/dL AST 60 H (17-59) U/L ALT 53 (7-56) U/L Alkaline Phosphatase 67 (38-126) U/L Lactate Dehydrogenase 596 (333-699) U/L Total Creatine Kinase 234 H (35-230) U/L CK-MB (CK-2) 17.4 H (0.0-3.6) ng/mL CK-MB (CK-2) % 7.4 H (2.5-3.0) % Troponin I 3.83 H* ng/mL Total Protein 6.8 (5.8-8.3) g/dL Albumin 3.6 (3.0-4.8) g/dL Globulin 3.2 gm/dL Albumin/Globulin Ratio 1.1 (1.1-1.8) Urine Color (YELLOW) Urine Appearance (CLEAR) Urine pH (4.7-8.0) Ur Specific [place] (1.005-1.035) Urine Protein (<30 mg/dL) mg/dL Urine Glucose (UA) (NEGATIVE) mg/dL Urine Ketones (NEGATIVE) mg/dL Urine Blood (NEGATIVE) Urine Nitrate (NEGATIVE) Urine Bilirubin (NEGATIVE) Urine Urobilinogen (<1 E.U./dL) E.U./dL Ur Leukocyte Esterase (NEGATIVE) Raul/uL Urine Opiates Screen Negative (NEGATIVE) Urine Methadone Screen Negative (NEGATIVE) Ur Barbiturates Screen Negative (NEGATIVE) Ur Phencyclidine Scrn Negative (NEGATIVE) Ur Amphetamines Screen Negative (NEGATIVE) U Benzodiazepines Scrn Positive (NEGATIVE) U Oth Cocaine Metabols Negative (NEGATIVE) U Cannabinoids Screen Negative (NEGATIVE) Blood Type Antibody Screen BBK History Checked 02/06/18 02/05/18 Range/Units 03:00 11:05 WBC (4.5-11.0) 10^3/ul RBC (3.5-6.1) 10^6/uL Hgb (14.0-18.0) g/dL Hct (42.0-52.0) % MCV (80.0-105.0) fl MCH (25.0-35.0) pg MCHC (31.0-37.0) g/dl RDW (11.5-14.5) % Plt Count (120.0-450.0) 10^3/uL MPV (7.0-11.0) fl Gran % (50.0-68.0) % Lymph % (Auto) (22.0-35.0) % [place] % (Auto) (1.0-6.0) % Eos % (Auto) (1.5-5.0) % Baso % (Auto) (0.0-3.0) % Gran # (1.4-6.5) Lymph # (Auto) (1.2-3.4) [place] # (Auto) (0.1-0.6) Eos # (Auto) (0.0-0.7) Baso # (Auto) (0.0-2.0) K/mm3 Sodium (132-148) mmol/L Potassium (3.6-5.0) mmol/L Chloride (98-107) mmol/L Carbon Dioxide (21-33) mmol/L Anion Gap (10-20) BUN (7-21) mg/dL Creatinine (0.8-1.5) mg/dl Est GFR ( Amer) Est GFR (Non-Af Amer) Random Glucose (70-110) mg/dL Calcium (8.4-10.5) mg/dL Total Bilirubin (0.2-1.3) mg/dL AST (17-59) U/L ALT (7-56) U/L Alkaline Phosphatase (38-126) U/L Lactate Dehydrogenase (333-699) U/L Total Creatine Kinase (35-230) U/L CK-MB (CK-2) (0.0-3.6) ng/mL CK-MB (CK-2) % (2.5-3.0) % Troponin I ng/mL Total Protein (5.8-8.3) g/dL Albumin (3.0-4.8) g/dL Globulin gm/dL Albumin/Globulin Ratio (1.1-1.8) Urine Color Yellow (YELLOW) Urine Appearance Clear (CLEAR) Urine pH 6.0 (4.7-8.0) Ur Specific [place] 1.015 (1.005-1.035) Urine Protein Negative (<30 mg/dL) mg/dL Urine Glucose (UA) Negative (NEGATIVE) mg/dL Urine Ketones Negative (NEGATIVE) mg/dL Urine Blood Negative (NEGATIVE) Urine Nitrate Negative (NEGATIVE) Urine Bilirubin Negative (NEGATIVE) Urine Urobilinogen 0.2 (<1 E.U./dL) E.U./dL Ur Leukocyte Esterase Negative (NEGATIVE) Raul/uL Urine Opiates Screen (NEGATIVE) Urine Methadone Screen (NEGATIVE) Ur Barbiturates Screen (NEGATIVE) Ur Phencyclidine Scrn (NEGATIVE) Ur Amphetamines Screen (NEGATIVE) U Benzodiazepines Scrn (NEGATIVE) U Oth Cocaine Metabols (NEGATIVE) U Cannabinoids Screen (NEGATIVE) Blood Type A POSITIVE Antibody Screen Negative BBK History Checked Patient has bt Laboratory Results - last 24 hr 02/05/18 02/06/18 02/06/18 11:05 03:00 03:00 WBC RBC Hgb Hct MCV MCH MCHC RDW Plt Count MPV Gran % Lymph % (Auto) [place] % (Auto) Eos % (Auto) Baso % (Auto) Gran # Lymph # (Auto) [place] # (Auto) Eos # (Auto) Baso # (Auto) Sodium Potassium Chloride Carbon Dioxide Anion Gap BUN Creatinine Est GFR ( Amer) Est GFR (Non-Af Amer) Random Glucose Calcium Total Bilirubin AST ALT Alkaline Phosphatase Lactate Dehydrogenase Total Creatine Kinase CK-MB (CK-2) CK-MB (CK-2) % Troponin I Total Protein Albumin Globulin Albumin/Globulin Ratio Urine Color Yellow Urine Appearance Clear Urine pH 6.0 Ur Specific [place] 1.015 Urine Protein Negative Urine Glucose (UA) Negative Urine Ketones Negative Urine Blood Negative Urine Nitrate Negative Urine Bilirubin Negative Urine Urobilinogen 0.2 Ur Leukocyte Esterase Negative Urine Opiates Screen Negative Urine Methadone Screen Negative Ur Barbiturates Screen Negative Ur Phencyclidine Scrn Negative Ur Amphetamines Screen Negative U Benzodiazepines Scrn Positive U Oth Cocaine Metabols Negative U Cannabinoids Screen Negative Blood Type A POSITIVE Antibody Screen Negative BBK History Checked Patient has bt 02/06/18 02/06/18 06:00 06:00 WBC 7.6 RBC 4.74 Hgb 13.5 L Hct 40.9 L MCV 86.3 MCH 28.5 MCHC 33.0 RDW 15.4 H Plt Count 203 MPV 10.1 Gran % 64.8 Lymph % (Auto) 23.3 [place] % (Auto) 11.5 H Eos % (Auto) 0.3 L Baso % (Auto) 0.1 Gran # 4.89 Lymph # (Auto) 1.8 [place] # (Auto) 0.9 H Eos # (Auto) 0.0 Baso # (Auto) 0.01 Sodium 141 Potassium 4.7 Chloride 105 Carbon Dioxide 25 Anion Gap 16 BUN 14 Creatinine 1.0 Est GFR ( Amer) > 60 Est GFR (Non-Af Amer) > 60 Random Glucose 101 Calcium 8.6 Total Bilirubin 1.8 H AST 60 H ALT 53 Alkaline Phosphatase 67 Lactate Dehydrogenase 596 Total Creatine Kinase 234 H CK-MB (CK-2) 17.4 H CK-MB (CK-2) % 7.4 H Troponin I 3.83 H* Total Protein 6.8 Albumin 3.6 Globulin 3.2 Albumin/Globulin Ratio 1.1 Urine Color Urine Appearance Urine pH Ur Specific [place] Urine Protein Urine Glucose (UA) Urine Ketones Urine Blood Urine Nitrate Urine Bilirubin Urine Urobilinogen Ur Leukocyte Esterase Urine Opiates Screen Urine Methadone Screen Ur Barbiturates Screen Ur Phencyclidine Scrn Ur Amphetamines Screen U Benzodiazepines Scrn U Oth Cocaine Metabols U Cannabinoids Screen Blood Type Antibody Screen BBK History Checked EKG/Cardiology Studies: Cardiology / EKG Studies 02/05/18 09:13 EKG [ELECTROCARDIOGRAM] Routine Comment: Reason For Exam: CHEST PAIN EKG [ELECTROCARDIOGRAM] Routine Comment: repeat ekg Reason For Exam: CHEST PAIN 02/05/18 13:35 ELECTROCARDIOGRAM Urgent Comment: 12 lead EKG upon arrival in unit Reason For Exam: post ptca 02/06/18 06:00 EKG [ELECTROCARDIOGRAM] Routine Comment: Reason For Exam: cp 02/06/18 13:45 ELECTROCARDIOGRAM DAILY Comment: Reason For Exam: chest pain Critical Care Progress Note - Nutrition Nutrition: Nutrition Category Date Time Status Heart Healthy Diet [DIET] Diets 02/05/18 Lunch Active Assessment/Plan - Assessment and Plan (Free Text) Assessment: 52 yo M with PMH of CAD presented to [facility] due to chest pain. Patient was found to have T-wave inversions in lateral leads and an elevated troponin. Patient was taken to cardiac catherization lab for NSTEMI, where DINA were placed in LAD and circumflex arteries. Patient is admitted to ICU for post-cardiac catherization monitoring on integrilin drip, which is off now. Transfer/ discharge per cardio. Plan: Neuro: - AAOx3 - Maintain normothermia CV: - Integrilin drip off - Dual anti-platelet therapy - Consider statin after LFT's normalize - Cont ACEi - Hold BB for now per cardio - A1C, TSH, and Lipid panel WNL - Maintain MAP > 65 - Cardiology consulted Pulm: - CXR negative - Maintain O2 > 90% - O2 via NC GI: - LFT's downtrending - Hep panel negative - Protonix for GI PPx - Heart healthy diet Renal: - Monitor electrolytes and replete as needed - Maintain euvolemia Heme: - Monitor H/H Endo: - Maintain euglycemia Pt seen and discussed in detail with Dr. Tyson. Vinod Malhotra, PGY1
[2018-02-06 10:52] VITALS: BP 127/86; PULSE 93; RESP 45; O2SAT 90
--- NOTE | 2018-02-06 11:30 | CP.PCM.DIS ---
<KristinaLila - Last Filed: 02/06/18 11:30> Provider - Provider Date of Admission: 02/05/18 09:31 Attending physician: Franki Lopez MD Primary care physician: [facility] clinic Consults: Cardiology Dr Jose J Dukes Time Spent in preparation of Discharge (in minutes): 60 Diagnosis - Discharge Diagnosis (1) Alcohol abuse Status: Acute (2) Chest pain Status: Acute (3) NSTEMI (non-ST elevated myocardial infarction) Status: Acute (4) Acute myocardial infarction Status: Acute Hospital Course - Lab Results Lab Results: Most Recent Lab Values WBC 7.6 10^3/ul (4.5-11.0) 02/06/18 06:00 RBC 4.74 10^6/uL (3.5-6.1) 02/06/18 06:00 Hgb 13.5 g/dL (14.0-18.0) L 02/06/18 06:00 Hct 40.9 % (42.0-52.0) L 02/06/18 06:00 MCV 86.3 fl (80.0-105.0) 02/06/18 06:00 MCH 28.5 pg (25.0-35.0) 02/06/18 06:00 MCHC 33.0 g/dl (31.0-37.0) 02/06/18 06:00 RDW 15.4 % (11.5-14.5) H 02/06/18 06:00 Plt Count 203 10^3/uL (120.0-450.0) 02/06/18 06:00 MPV 10.1 fl (7.0-11.0) 02/06/18 06:00 Gran % 64.8 % (50.0-68.0) 02/06/18 06:00 Lymph % (Auto) 23.3 % (22.0-35.0) 02/06/18 06:00 [place] % (Auto) 11.5 % (1.0-6.0) H 02/06/18 06:00 Eos % (Auto) 0.3 % (1.5-5.0) L 02/06/18 06:00 Baso % (Auto) 0.1 % (0.0-3.0) 02/06/18 06:00 Gran # 4.89 (1.4-6.5) 02/06/18 06:00 Lymph # (Auto) 1.8 (1.2-3.4) 02/06/18 06:00 [place] # (Auto) 0.9 (0.1-0.6) H 02/06/18 06:00 Eos # (Auto) 0.0 (0.0-0.7) 02/06/18 06:00 Baso # (Auto) 0.01 K/mm3 (0.0-2.0) 02/06/18 06:00 PT 13.4 SECONDS (9.4-12.5) H 02/05/18 08:09 INR 1.16 (0.93-1.08) H 02/05/18 08:09 APTT 24.8 Seconds (25.1-36.5) L 02/05/18 08:09 D-Dimer, Quantitative 1626 ng/mL (0-243) H 02/05/18 08:09 Sodium 141 mmol/L (132-148) 02/06/18 06:00 Potassium 4.7 mmol/L (3.6-5.0) 02/06/18 06:00 Chloride 105 mmol/L (98-107) 02/06/18 06:00 Carbon Dioxide 25 mmol/L (21-33) 02/06/18 06:00 Anion Gap 16 (10-20) 02/06/18 06:00 BUN 14 mg/dL (7-21) 02/06/18 06:00 Creatinine 1.0 mg/dl (0.8-1.5) 02/06/18 06:00 Est GFR ( Amer) > 60 02/06/18 06:00 Est GFR (Non-Af Amer) > 60 02/06/18 06:00 Random Glucose 101 mg/dL (70-110) 02/06/18 06:00 Hemoglobin A1c 5.7 % (4.2-6.5) 02/05/18 08:00 Calcium 8.6 mg/dL (8.4-10.5) 02/06/18 06:00 Magnesium 2.0 mg/dL (1.7-2.2) 02/05/18 08:09 Total Bilirubin 1.8 mg/dL (0.2-1.3) H 02/06/18 06:00 AST 60 U/L (17-59) H 02/06/18 06:00 ALT 53 U/L (7-56) 02/06/18 06:00 Alkaline Phosphatase 67 U/L (38-126) 02/06/18 06:00 Lactate Dehydrogenase 596 U/L (333-699) 02/06/18 06:00 Total Creatine Kinase 234 U/L (35-230) H 02/06/18 06:00 CK-MB (CK-2) 17.4 ng/mL (0.0-3.6) H 02/06/18 06:00 CK-MB (CK-2) % 7.4 % (2.5-3.0) H 02/06/18 06:00 Troponin I 3.83 ng/mL H* 02/06/18 06:00 NT-Pro-B Natriuret Pep 2730 pg/mL (0-450) H 02/05/18 08:09 Total Protein 6.8 g/dL (5.8-8.3) 02/06/18 06:00 Albumin 3.6 g/dL (3.0-4.8) 02/06/18 06:00 Globulin 3.2 gm/dL 02/06/18 06:00 Albumin/Globulin Ratio 1.1 (1.1-1.8) 02/06/18 06:00 Triglycerides 107 mg/dL (35-160) 02/05/18 08:00 Cholesterol 178 mg/dL (130-200) 02/05/18 08:00 LDL Cholesterol Direct 115 mg/dL (0-129) 02/05/18 08:00 HDL Cholesterol 42 mg/dL (29-60) 02/05/18 08:00 Free T4 1.20 ng/dL (0.78-2.19) 02/05/18 08:00 TSH 3rd Generation 3.18 mIU/mL (0.46-4.68) 02/05/18 08:00 Urine Color Yellow (YELLOW) 02/06/18 03:00 Urine Appearance Clear (CLEAR) 02/06/18 03:00 Urine pH 6.0 (4.7-8.0) 02/06/18 03:00 Ur Specific [place] 1.015 (1.005-1.035) 02/06/18 03:00 Urine Protein Negative mg/dL (<30 mg/dL) 02/06/18 03:00 Urine Glucose (UA) Negative mg/dL (NEGATIVE) 02/06/18 03:00 Urine Ketones Negative mg/dL (NEGATIVE) 02/06/18 03:00 Urine Blood Negative (NEGATIVE) 02/06/18 03:00 Urine Nitrate Negative (NEGATIVE) 02/06/18 03:00 Urine Bilirubin Negative (NEGATIVE) 02/06/18 03:00 Urine Urobilinogen 0.2 E.U./dL (<1 E.U./dL) 02/06/18 03:00 Ur Leukocyte Esterase Negative Raul/uL (NEGATIVE) 02/06/18 03:00 Urine Opiates Screen Negative (NEGATIVE) 02/06/18 03:00 Urine Methadone Screen Negative (NEGATIVE) 02/06/18 03:00 Ur Barbiturates Screen Negative (NEGATIVE) 02/06/18 03:00 Ur Phencyclidine Scrn Negative (NEGATIVE) 02/06/18 03:00 Ur Amphetamines Screen Negative (NEGATIVE) 02/06/18 03:00 U Benzodiazepines Scrn Positive (NEGATIVE) 02/06/18 03:00 U Oth Cocaine Metabols Negative (NEGATIVE) 02/06/18 03:00 U Cannabinoids Screen Negative (NEGATIVE) 02/06/18 03:00 Alcohol, Quantitative < 10 mg/dL (0-10) 02/05/18 08:00 Hepatitis A IgM Ab Negative (NEGATIVE) 02/05/18 08:00 Hep Bs Antigen Negative (NEGATIVE) 02/05/18 08:00 Hep B Core IgM Ab Negative (NEGATIVE) 02/05/18 08:00 Hepatitis C Antibody Negative (NEGATIVE) 02/05/18 08:00 Blood Type A POSITIVE 02/05/18 11:05 Antibody Screen Negative 02/05/18 11:05 BBK History Checked Patient has bt 02/05/18 11:05 - Hospital Course Hospital Course: PGY-[address] Lopez Mr Frey, 52 upper sorbian speaking male with PMHx 3-4 beer a day, Hx CAD s/p 2 stents ( RCA dominant, LAD stent/RCA stent, EF 35-40% 2014) came in for chest pain. 1 day prior to ED admission, He was working at [employer], which involves a lot of throwing boxes overhead. He felt chest pressure with mild pain at L mid chest, without radiation pain, denies dizziness, diaphoresis, n/ v. He took asa 81, which helped. However the chest pain comes and goes. At night he didn't sleep well because of the chest pain. He decided to come to this hospital because chest pain didn't go away. He was found to have ACS with NSTEMI. His EKG showed TWI on lateral leads, troponin 4.70. BNP 2730. CXR no active disease. He was taken to the electrical laboratory technician for emergent PTCA, received DINA x 2 , one on proximal LAD and one L circumflex artery. He was found to have Ischemic cardiomyopathy, EF 25-30% due to triple vessel disease. Integrillin gtt stopped 7am today. His RCA was 90% stenosis and pt needs to follow up with Dr Dukes for elective outpatient cardiac risk reduction program and planned PTCA of RCA. He was put on ASA indefinitely, plavix at least one year, low dose lisinopril, and lipitor for cardic risk reduction. Diagnosis, prognosis, counseling, and discharge instructions was communicated via [place]ic teletranslator. Cardiology cleared to go home. All questions answered. [facility] clinic card and work note was given to the patient. psychologist social followed up with for landcare facilitator day off. Meds to bed delivered. He was found to have transaminitis with elevated TB, Likely alcoholic induced. hep panel negative. His CIWA score was 0-2. He was counseled on alcohol cessation. Discharge Exam - Head Exam Head Exam: ATRAUMATIC, NORMAL INSPECTION, NORMOCEPHALIC - Eye Exam Eye Exam: EOMI, Normal appearance, PERRL Pupil Exam: PERRL - ENT Exam ENT Exam: Mucous Membranes Moist - Neck Exam Additional comments: supple. no jvd - Respiratory Exam Respiratory Exam: Clear to PA & Lateral, NORMAL BREATHING PATTERN, UNREMARKABLE. absent: Rales, Rhonchi, Wheezes - Cardiovascular Exam Cardiovascular Exam: REGULAR RHYTHM, +S1, +S2. absent: Systolic Murmur - GI/Abdominal Exam GI & Abdominal Exam: Normal Bowel Sounds, Soft, Unremarkable. absent: Guarding , Rigid, Tenderness - Extremities Exam Additional comments: R groin access dressing intact. no hematoma. pedal pulses present b/l - Neurological Exam Neurological exam: Alert, Normal Gait, Oriented x3 - Psychiatric Exam Psychiatric exam: Normal Affect, Normal Mood - Skin Skin Exam: Dry, Warm Discharge Plan - Discharge Medications Prescriptions: Aspirin [Ecotrin] 81 mg PO DAILY 30 Days #30 tabec Atorvastatin [Lipitor] 10 mg PO DIN #30 tab Clopidogrel [Plavix] 75 mg PO DAILY #30 tab Lisinopril 2.5 mg PO DAILY #30 tablet - Follow Up Plan Condition: FAIR Disposition: HOME/ ROUTINE Instructions: Myocardial Infarction (DC), Myocardial Infarction (GEN), Chest Pain (ED), Chest Pain (DC), Chest Pain (GEN) Additional Instructions: 1. Follow up with Dr. Dkues, Instruction Librarian in 1 week after discharge 2. Patient needs to stay on aspirin life long and plavix for at least 1 year to prevent the new stent from clotting. He needs an outpatient stent for the third clotted artery 3. Given [facility] clinic card for patient to establish primary care doctor Referrals: [facility] at [facility] [Outside] - 1 Week Jose J Dukes MD [Staff Provider] - 1 Week <Franki Lopez - Last Filed: 02/06/18 18:55> Provider - Provider Date of Admission: 02/05/18 09:31 Attending physician: Franki Lopez MD Hospital Course - Lab Results Lab Results: Micro Results 02/05/18 13:49 Naris MRSA Culture (Admit) - Final MRSA NOT DETECTED Most Recent Lab Values WBC 7.6 10^3/ul (4.5-11.0) 02/06/18 06:00 RBC 4.74 10^6/uL (3.5-6.1) 02/06/18 06:00 Hgb 13.5 g/dL (14.0-18.0) L 02/06/18 06:00 Hct 40.9 % (42.0-52.0) L 02/06/18 06:00 MCV 86.3 fl (80.0-105.0) 02/06/18 06:00 MCH 28.5 pg (25.0-35.0) 02/06/18 06:00 MCHC 33.0 g/dl (31.0-37.0) 02/06/18 06:00 RDW 15.4 % (11.5-14.5) H 02/06/18 06:00 Plt Count 203 10^3/uL (120.0-450.0) 02/06/18 06:00 MPV 10.1 fl (7.0-11.0) 02/06/18 06:00 Gran % 64.8 % (50.0-68.0) 02/06/18 06:00 Lymph % (Auto) 23.3 % (22.0-35.0) 02/06/18 06:00 [place] % (Auto) 11.5 % (1.0-6.0) H 02/06/18 06:00 Eos % (Auto) 0.3 % (1.5-5.0) L 02/06/18 06:00 Baso % (Auto) 0.1 % (0.0-3.0) 02/06/18 06:00 Gran # 4.89 (1.4-6.5) 02/06/18 06:00 Lymph # (Auto) 1.8 (1.2-3.4) 02/06/18 06:00 [place] # (Auto) 0.9 (0.1-0.6) H 02/06/18 06:00 Eos # (Auto) 0.0 (0.0-0.7) 02/06/18 06:00 Baso # (Auto) 0.01 K/mm3 (0.0-2.0) 02/06/18 06:00 PT 13.4 SECONDS (9.4-12.5) H 02/05/18 08:09 INR 1.16 (0.93-1.08) H 02/05/18 08:09 APTT 24.8 Seconds (25.1-36.5) L 02/05/18 08:09 D-Dimer, Quantitative 1626 ng/mL (0-243) H 02/05/18 08:09 Sodium 141 mmol/L (132-148) 02/06/18 06:00 Potassium 4.7 mmol/L (3.6-5.0) 02/06/18 06:00 Chloride 105 mmol/L (98-107) 02/06/18 06:00 Carbon Dioxide 25 mmol/L (21-33) 02/06/18 06:00 Anion Gap 16 (10-20) 02/06/18 06:00 BUN 14 mg/dL (7-21) 02/06/18 06:00 Creatinine 1.0 mg/dl (0.8-1.5) 02/06/18 06:00 Est GFR ( Amer) > 60 02/06/18 06:00 Est GFR (Non-Af Amer) > 60 02/06/18 06:00 Random Glucose 101 mg/dL (70-110) 02/06/18 06:00 Hemoglobin A1c 5.7 % (4.2-6.5) 02/05/18 08:00 Calcium 8.6 mg/dL (8.4-10.5) 02/06/18 06:00 Magnesium 2.0 mg/dL (1.7-2.2) 02/05/18 08:09 Total Bilirubin 1.8 mg/dL (0.2-1.3) H 02/06/18 06:00 AST 60 U/L (17-59) H 02/06/18 06:00 ALT 53 U/L (7-56) 02/06/18 06:00 Alkaline Phosphatase 67 U/L (38-126) 02/06/18 06:00 Lactate Dehydrogenase 596 U/L (333-699) 02/06/18 06:00 Total Creatine Kinase 234 U/L (35-230) H 02/06/18 06:00 CK-MB (CK-2) 17.4 ng/mL (0.0-3.6) H 02/06/18 06:00 CK-MB (CK-2) % 7.4 % (2.5-3.0) H 02/06/18 06:00 Troponin I 3.83 ng/mL H* 02/06/18 06:00 NT-Pro-B Natriuret Pep 2730 pg/mL (0-450) H 02/05/18 08:09 Total Protein 6.8 g/dL (5.8-8.3) 02/06/18 06:00 Albumin 3.6 g/dL (3.0-4.8) 02/06/18 06:00 Globulin 3.2 gm/dL 02/06/18 06:00 Albumin/Globulin Ratio 1.1 (1.1-1.8) 02/06/18 06:00 Triglycerides 107 mg/dL (35-160) 02/05/18 08:00 Cholesterol 178 mg/dL (130-200) 02/05/18 08:00 LDL Cholesterol Direct 115 mg/dL (0-129) 02/05/18 08:00 HDL Cholesterol 42 mg/dL (29-60) 02/05/18 08:00 Free T4 1.20 ng/dL (0.78-2.19) 02/05/18 08:00 TSH 3rd Generation 3.18 mIU/mL (0.46-4.68) 02/05/18 08:00 Urine Color Yellow (YELLOW) 02/06/18 03:00 Urine Appearance Clear (CLEAR) 02/06/18 03:00 Urine pH 6.0 (4.7-8.0) 02/06/18 03:00 Ur Specific [place] 1.015 (1.005-1.035) 02/06/18 03:00 Urine Protein Negative mg/dL (<30 mg/dL) 02/06/18 03:00 Urine Glucose (UA) Negative mg/dL (NEGATIVE) 02/06/18 03:00 Urine Ketones Negative mg/dL (NEGATIVE) 02/06/18 03:00 Urine Blood Negative (NEGATIVE) 02/06/18 03:00 Urine Nitrate Negative (NEGATIVE) 02/06/18 03:00 Urine Bilirubin Negative (NEGATIVE) 02/06/18 03:00 Urine Urobilinogen 0.2 E.U./dL (<1 E.U./dL) 02/06/18 03:00 Ur Leukocyte Esterase Negative Raul/uL (NEGATIVE) 02/06/18 03:00 Urine Opiates Screen Negative (NEGATIVE) 02/06/18 03:00 Urine Methadone Screen Negative (NEGATIVE) 02/06/18 03:00 Ur Barbiturates Screen Negative (NEGATIVE) 02/06/18 03:00 Ur Phencyclidine Scrn Negative (NEGATIVE) 02/06/18 03:00 Ur Amphetamines Screen Negative (NEGATIVE) 02/06/18 03:00 U Benzodiazepines Scrn Positive (NEGATIVE) 02/06/18 03:00 U Oth Cocaine Metabols Negative (NEGATIVE) 02/06/18 03:00 U Cannabinoids Screen Negative (NEGATIVE) 02/06/18 03:00 Alcohol, Quantitative < 10 mg/dL (0-10) 02/05/18 08:00 Hepatitis A IgM Ab Negative (NEGATIVE) 02/05/18 08:00 Hep Bs Antigen Negative (NEGATIVE) 02/05/18 08:00 Hep B Core IgM Ab Negative (NEGATIVE) 02/05/18 08:00 Hepatitis C Antibody Negative (NEGATIVE) 02/05/18 08:00 Blood Type A POSITIVE 02/05/18 11:05 Antibody Screen Negative 02/05/18 11:05 BBK History Checked Patient has bt 02/05/18 11:05 Attending/Attestation - Attestation I have personally seen and examined this patient.: Yes I have fully participated in the care of the patient.: Yes I have reviewed all pertinent clinical information, including history, physical exam and plan: Yes Notes (Text): 02/06/18 18:51 Attending note; Patient seen and examined with resident in ICU. Patient is a 52 year old Icelandic speaking male with PMH of alcohol use, Hx CAD s /p 2 stents (RCA dominant, LAD stent/RCA stent, EF 35-40% 2014) came in for chest pain. Found to have non-ST elevation ND. Status post PTCA of LAD and PTCA of circumflex. Patient will have a planned PTCA of RCA. Patient will follow-up with Dr. Dukes next week. Patient is advised to continue aspirin, Plavix, Lipitor and AUDRA inhibitor. History of alcohol use; complete alcohol cessation is strongly advised. utility worker driver evaluation appreciated. Provided with assistant distribution manager card. Patient is educated by psychologist social about how to apply for insurance. Upon discharge patient will be referred to [facility] clinic. The patient needs close follow-up with vehicle insurance agent Dr. Dukes.
--- NOTE | 2018-02-06 12:05 | PN ---
DATE: 02/06/2018 CARDIOLOGY FOLLOWUP SUBJECTIVE: The patient is asymptomatic. PHYSICAL EXAMINATION: VITAL SIGNS: The blood pressure is 112/82, the heart rate is in the 90s. NECK: Negative JVD. LUNGS: Without rales. HEART: Reveals S1, S2. EXTREMITIES: Without edema. LABORATORY DATA: Hemoglobin is 13. Chemistries: BUN and creatinine are unremarkable. IMPRESSION: 1. [id number] myocardial infarction. 2. Coronary artery disease. 3. Status post percutaneous transluminal coronary angioplasty and stent of an occluded left anterior descending as well as circumflex artery. 4. Multivessel coronary artery disease. PLAN: Given these findings, the patient can be discharged today. We will follow up in the office. We discussed about stage PTCA of his other arteries. Jose J Dukes MD
--- NOTE | 2018-02-06 16:49 | CARD ---
APPROVED REPORT EKG Measurement Heart [id number] <Conclusion> Normal sinus rhythm Possible Left atrial enlargement Left axis deviation T wave abnormality, consider anterolateral ischemia Prolonged QT Abnormal ECG
== END 2018-02-06 14:05 | disposition home or self-care (01) | DRG 247 ==
LOC: ED 07:58 → ERH 09:31 → CCU 13:38
PROVIDERS: ADMIT Internal Medicine; ATTEND Internal Medicine
PROC: 027135Z Dilation of Coronary Artery, Two Arteries with Two Drug-eluting Intraluminal Devices, Percutaneous Approach (ICD-10-PCS; principal; 2018-02-05)
PROC: 4A023N7 Measurement of Cardiac Sampling and Pressure, Left Heart, Percutaneous Approach (ICD-10-PCS; 2018-02-05)
PROC: B2111ZZ Fluoroscopy of Multiple Coronary Arteries using Low Osmolar Contrast (ICD-10-PCS; 2018-02-05)
PROC: B2151ZZ Fluoroscopy of Left Heart using Low Osmolar Contrast (ICD-10-PCS; 2018-02-05)
PROC: 3E033PZ Introduction of Platelet Inhibitor into Peripheral Vein, Percutaneous Approach (ICD-10-PCS; 2018-02-05)
DX: I21.4 Non-ST elevation (NSTEMI) myocardial infarction (principal); I25.10 Atherosclerotic heart disease of native coronary artery without angina pectoris; I25.5 Ischemic cardiomyopathy; F10.10 Alcohol abuse, uncomplicated; I25.2 Old myocardial infarction; Z79.82 Long term (current) use of aspirin; Z80.8 Family history of malignant neoplasm of other organs or systems; Z82.49 Family history of ischemic heart disease and other diseases of the circulatory system; E11.9 Type 2 diabetes mellitus without complications; I10 Essential (primary) hypertension; E78.00 Pure hypercholesterolemia, unspecified; E66.9 Obesity, unspecified; Z68.29 Body mass index [BMI] 29.0-29.9, adult; R40.2412 Glasgow coma scale score 13-15, at arrival to emergency department

== ENCOUNTER 2019-01-30 15:38 | Emergency (ER) | payer MEDICAID ==
--- NOTE | 2019-01-30 16:01 | ED PDOC ---
Arrival/HPI - General Time Seen by Provider: 01/30/19 15:44 Historian: Patient - History of Present Illness Narrative History of Present Illness (Text): 01/30/19 15:44 Greg Frey is a 53 year old male, with a past medical history of CAD s/p stents, who presents to the emergency department complaining of chest pressure since yesterday. Pt informs pain lasted for 2-3 minutes and occurred twice. Patient informs visiting Dr. Lei in office and was sent to the emergency department for further evaluation. Patient denies fevers, chills, palpitations, shortness of breath, abdominal pain, nausea, vomiting, diarrhea, dysuria, hematuria, back pain, neck pain, or any other complaints. PMD: Dr. Lei Cardiology: Dr. Dukes Time/Duration: Other (yesterday) Symptom Onset: Sudden Activities at Onset: Light Context: Home Past Medical History - Provider Review Nursing Documentation Reviewed: Yes - Infectious Disease Hx of Infectious Diseases: None - Tetanus Immunization Tetanus Immunization: Unknown - Past Medical History Past Medical History: No Previous - Cardiac Hx Cardiac Disorders: Yes Hx Angina: No Hx Cardiac Arrhythmia: No Hx Circulatory Problems: No Hx Congestive Heart Failure: No Hx Heart Murmur: No Hx Heart Transplant: No Hx Hypertension: Yes Hx Internal Defibrillator: No Hx Mitral Valve Prolapse: No Hx Pacemaker: No Hx Peripheral Edema: No Hx Peripheral Vascular Disease: No - Pulmonary Hx Respiratory Disorders: No Hx Asthma: No Hx Bronchitis: No Hx Chronic Obstructive Pulmonary Disease (COPD): No Hx Emphysema: No Hx Pneumonia: No Hx Respiratory Aspiration: No Hx Respiratory Tract Infection: No Hx Sleep Apnea: No Hx Tuberculosis: No - Neurological Hx Neurological Disorder: No Hx Alzheimer's Disease: No HX Cerebrovascular Accident: No Hx Dementia: No Hx Dizziness: No Hx Meningitis: No Hx Migraine: No Hx Parkinson's Disease: No Hx Seizures: No Hx Transient Ischemic Attacks (TIA): No - HEENT Hx HEENT Disorder: No Hx Blind: No Hx Cataracts: No Hx Deafness: No Hx Difficulty Chewing: No Hx Epistaxis: No Hx Glaucoma: No Hx Macular Degeneration: No - Renal Hx Renal Disorder: No Hx Dialysis: No Hx Kidney Stones: No Hx Neurogenic Bladder: No Hx Pyelonephritis: No Hx Renal Cancer: No Hx Renal Failure: No - Endocrine/Metabolic Hx Endocrine Disorders: No Hx Adrenal Cancer: No Hx Diabetes Insipidus: No Hx Diabetes Mellitus Type 1: No Hx Diabetes Mellitus Type 2: No Hx Hyperthyroidism: No Hx Hypothyroidism: No Hx Systemic Lupus Erythematosus: No - Hematological/Oncological Hx Blood Disorders: No Hx AIDS: No Hx Anemia: No Hx Cancer: No Hx Chemotherapy: No Hx Cirrhosis: No Hx Hemophilia: No Hx Hepatitis A: No Hx Hepatitis B: No Hx Hepatitis C: No Hx Metastasis: No Hx Shingles: No Hx Sickle Cell Disease: No Hx Unexplained Bleeding: No - Integumentary Hx Dermatological Disorder: No Hx Basal Cell Carcinoma: No Hx Eczema: No Hx Melanoma: No Hx Psoriasis: No Hx Squamous Cell Carcinoma: No - Musculoskeletal/Rheumatological Hx Musculoskeletal Disorders: No Hx Arthritis: No Hx Back Pain: No Hx Degenerative Joint Disease: No Hx Falls: No Hx Fractures: No Hx Gout: No Hx Herniated Disk: No Hx Myasthenia Gravis: No Hx Osteoarthritis: No Hx Osteomyelitis: No Hx Osteoporosis: No Hx Rhabdomyolysis: No Hx Spinal Stenosis: No Hx Unsteady Gait: No - Gastrointestinal Hx Gastrointestinal Disorders: No Hx Colostomy: No Hx Crohn's Disease: No Hx Diverticulitis: No Hx Gall Bladder Disease: No Hx Gastroesophageal Reflux: No Hx Gastrointestinal Ulcer: No Hx Ileostomy: No Hx Liver Failure: No Hx Pancreatitis: No HX Swallowing Problems: No - Genitourinary/Gynecological Hx Genitourinary Disorders: No Hx Hematuria: No Hx Incontinence: No Hx Prostate Problems: No Hx Sexually Transmitted Diseases: No Hx Urinary Tract Infection: No - Psychiatric Hx Emotional Abuse: No Hx Physical Abuse: No Hx Substance Use: No - Past Surgical History Past Surgical History: No Previous - Surgical History Hx Amputation: No Hx Appendectomy: No Hx Cardiac Catheterization: Yes Hx Cholecystectomy: No Hx Coronary Stent: Yes Hx Gastric Bypass Surgery: No Hx Hysterectomy: No Hx Inguinal Hernia Repair: No Hx Joint Replacement: No Hx Kidney Transplant: No Hx Liver Transplant: No Hx Mastectomy: No Hx Musculoskeletal Surgery: No Hx Open Heart Surgery: No Hx Orthopedic Surgery: No Hx Splenectomy: No Hx Valve Replacement: No - Anesthesia Hx Anesthesia Reactions: No Hx Malignant Hyperthermia: No - Suicidal Assessment Feels Threatened In Home Enviroment: No Family/Social History - Physician Review Nursing Documentation Reviewed: Yes Family/Social History: Unknown Family HX Smoking Status: Never Smoked Hx Alcohol Use: Yes (drinks till drunk when off from work) Hx Substance Use: No Hx Substance Use Treatment: No Allergies/Home Meds Allergies/Adverse Reactions: Allergies No Known Allergies Allergy (Verified 12/16/14 06:38) Review of Systems - Physician Review All systems were reviewed & negative as marked: Yes - Review of Systems Constitutional: absent: Fevers, Other (chills) Respiratory: absent: SOB Cardiovascular: Chest Pain Gastrointestinal: absent: Abdominal Pain, Diarrhea, Nausea, Vomiting Genitourinary Male: absent: Dysuria, Hematuria Musculoskeletal: absent: Back Pain, Neck Pain Physical Exam Temperature: Afebrile Blood Pressure: Hypertensive Pulse: Regular Respiratory Rate: Normal Appearance: Positive for: Well-Appearing, Non-Toxic, Comfortable Pain Distress: None Mental Status: Positive for: Alert and Oriented X 3 - Systems Exam Head: Present: Atraumatic, Normocephalic Pupils: Present: PERRL Extroacular Muscles: Present: EOMI Conjunctiva: Present: Normal Mouth: Present: Moist Mucous Membranes Neck: Present: Normal Range of Motion Respiratory/Chest: Present: Clear to Auscultation, Good Air Exchange. No: Respiratory Distress, Accessory Muscle Use, Wheezes, Rales Cardiovascular: Present: Regular Rate and Rhythm, Normal S1, S2. No: Murmurs, Rub, Gallop Abdomen: Present: Normal Bowel Sounds. No: Tenderness, Distention, Peritoneal Signs, Rebound, Guarding Back: Present: Normal Inspection Upper Extremity: Present: Normal Inspection. No: Cyanosis, Edema Lower Extremity: Present: Normal Inspection. No: Edema Neurological: Present: GCS=15, CN II-XII Intact, Speech Normal Skin: Present: Warm, Dry, Normal Color. No: Rashes Psychiatric: Present: Alert, Oriented x 3, Normal Insight, Normal Concentration Medical Decision Making ED Course and Treatment: 01/30/19 15:44 Impression: Patient is a 53 year old male, with a past medical history of CAD s/p stents, who presents to the emergency department complaining of chest press ure since yesterday. Differential Diagnosis included but are not limited to: Chest pain vs. ACS Plan: -- EKG -- Labs -- Chest X-Ray -- Aspirin -- Reassess and disposition Prior Visits: Notes and results from previous visits were reviewed. Patient was last seen in the emergency department on Progress Notes: 01/30/19 18:25 Patient continues to not have chest pain. His Heart Score is 5. Potassium elevated and treated with Kayexlate. 01/30/19 18:34 The patient declines admission, and wishes to leave the Emergency Department. This action is against my medical advice to the patient and the decision was made with informed refusal. The patient was told that admission is necessary and a full explanation of the rationale was given. The risks of leaving were explained to the patient and include, but are not limited to, worsening of known or currently unknown conditions, permanent disability and from undiagnosed or untreated conditions The patient has the capacity to make this informed decision and understands the clinical situation and my explanation of the risks of leaving. The patient voluntarily accepts these risks, and a signed AMA form documenting our conversation was obtained. The patient was given the opportunity to ask questions and reconsider. The patient was encouraged to return to the Emergency Department at any time for further care. 01/30/19 18:39 Patient will follow-up with lobby attendant (Dr. Julienne Flor) in outpatient and Dr. Lei. PMD. - RAD Interpretation Narrative RAD Interpretations (Text): 01/30/19 17:00 Chest X-Ray shows: IMPRESSION: Hypoinflation. No focal consolidation. Cardiomegaly Radiology Orders: 01/30/19 15:59 CHEST PORTABLE [RAD] Stat [place] Setter: Radiologist - EKG Interpretation EKG Interpretation (Text): 01/30/19 16:10 Reviewed EKG, shows: NSR at 74 BOM. Q waves in anterior leads. Positive change from 02/06/18 Interpreted by ED Physician: Yes Type: 12 lead EKG - Medication Orders Current Medication Orders: Aspirin (Aspirin) 325 mg PO STAT STA Stop: 01/30/19 16:00 - Scribe Statement The provider has reviewed the documentation as recorded by the Scribe Nito Reis All medical record entries made by the Scribe were at my direction and personally dictated by me. I have reviewed the chart and agree that the record accurately reflects my personal performance of the history, physical exam, medical decision making, and the department course for this patient. I have also personally directed, reviewed, and agree with the discharge instructions and disposition. Disposition/Present on Arrival - Present on Arrival Any Indicators Present on Arrival: No History of DVT/PE: No History of Uncontrolled Diabetes: No Urinary Catheter: No History Surgical Site Infection Following: None - Disposition Have Diagnosis and Disposition been Completed?: Yes Diagnosis: Chest pain Disposition: AGAINST MEDICAL ADVICE Disposition Time: 18:52 Patient Problems: Current Active Problems Problem Status Onset Chest pain Acute Condition: FAIR Discharge Instructions (ExitCare): Chest Pain (ED) Print Language: SENEGALESE Additional Instructions: GREG FREY, thank you for letting us take care of you today. Your provider was Juan David Pacheco DO and you were treated for Chest pain. The emergency medical care you received today was directed at your acute symptoms. If you were prescribed any medication, please fill it and take as directed. It may take several days for your symptoms to resolve. Return to the Emergency Department if your symptoms worsen, do not improve, or if you have any other problems. Please contact your doctor or call one of the physicians/clinics you have been referred to that are listed on the Patient Visit Information form that is included in your discharge packet. Bring any paperwork you were given at discharge with you along with any medications you are taking to your follow up visit. Our treatment cannot replace ongoing medical care by a primary care provider outside of the emergency department. Thank you for allowing the [facility] team to be part of your care today. If you had an X-Ray or CT scan: A Radiologist will review the ED reading if any change in treatment is needed we will contact you. If you had a blood, urine, or wound culture: It will take several days for the results, if any change in treatment is needed we will contact you. If you had an STI test: It will take 48 hours for the results. Please call after 1 week if you have not heard back. Referrals: Stephanie Lei MD [Family Provider] - Follow up with primary Forms: WORK NOTE
[2019-01-30 16:12] VITALS: RESP 18; TEMP 97.9; BMI 32.9
[2019-01-30 16:43] LABS: BASO # 0.01 K/mm3 (0.0-2.0); BASO % 0.1 % (0.0-3.0); EOS # 0.1 (0.0-0.7); EOS % 0.8 % (1.5-5.0); HEMOGLOBIN 14.6 g/dL (14.0-18.0); LYMPH # 2.8 (1.2-3.4); LYMPH % 33.3 % (22.0-35.0); MEAN CORPUSCULAR HEMOGLOBIN 29.1 pg (25.0-35.0); MEAN CORPUSCULAR HGB CONC 33.9 g/dl (31.0-37.0); MEAN PLATELET VOLUME 9.8 fl (7.0-11.0); MONO # 0.6 (0.1-0.6); MONO % 6.7 % (1.0-6.0); RBC 5.01 10^6/uL (3.5-6.1); RED CELL DISTRIBUTION WIDTH 15.7 % (11.5-14.5); WHITE BLOOD COUNT 8.3 10^3/uL (4.5-11.0)
--- NOTE | 2019-01-30 17:04 | RAD ---
HISTORY: chest pain COMPARISON: Chest x-ray performed 02/05/18 TECHNIQUE: Chest, one view. FINDINGS: Examination limited by habitus. LUNGS: Hypoinflation. No focal consolidation. Please note that chest x-ray has limited sensitivity for the detection of pulmonary masses. PLEURA: No significant pleural effusion identified. No definite pneumothorax . CARDIOVASCULAR: Cardiomegaly. No significant atherosclerotic calcification present. OSSEOUS STRUCTURES: No acute osseous abnormality identified. VISUALIZED UPPER ABDOMEN: Unremarkable. OTHER FINDINGS: None. IMPRESSION: Hypoinflation. No focal consolidation. Cardiomegaly.
[2019-01-30 17:42] LABS: ALB/GLOB RATIO 1.2 (1.1-1.8); ALBUMIN 4.2 g/dL (3.0-4.8); ALT/SGPT 48 U/L (7-56); AST/SGOT 33 U/L (17-59); BLOOD UREA NITROGEN 18 mg/dL (7-21); CALCIUM 9.2 mg/dL (8.4-10.5); GFR NON-AFRICAN AMERICAN > 60
[2019-01-30 18:06] VITALS: BP 125/68; PULSE 69; O2SAT 97
[2019-01-30 18:18] LABS: TROPONIN I < 0.01 ng/mL
--- NOTE | 2019-01-30 18:44 | CARD ---
APPROVED REPORT Date of service: 01/30/2019 EKG Measurement Heart [id number] <Conclusion> Normal sinus rhythm Septal infarct, age undetermined Abnormal ECG
== END 2019-01-30 18:53 | disposition left against medical advice (07) ==
LOC: ED 15:38
DX: R07.89 Other chest pain (principal); I25.10 Atherosclerotic heart disease of native coronary artery without angina pectoris; I10 Essential (primary) hypertension